=== PATIENT | female | born 1975 | race Caucasian/White ===

== ENCOUNTER → 2020-08-06 09:55 | Outpatient (CLI) | payer OTHER, SELFPAY ==
--- NOTE | 2020-08-06 09:56 | MR_ITS ---
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 COMPARISON: No exams were available for comparison TECHNIQUE: Routine multiplanar multi echo sequences are performed without and with gadolinium enhancement. FINDINGS: No midline shift, mass effect, intracranial hemorrhage, or hydrocephalus is evident. The cerebellopontine angles, cerebellum, and brainstem have an unremarkable appearance. No enhancing lesions are evident. There is no evidence of acute infarction. There is a tiny T2 white matter hyperintensity in right temporal parietal junction and 1 in the left frontal lobe which may be due to small ischemic gliotic foci or could be sequela from migraine headache. These do not enhance and do not demonstrate restricted diffusion. The hippocampal gyri have an unremarkable appearance. No evidence of hippocampal sclerosis. The temporal horns are symmetric. The pituitary, optic chiasm, corpus callosum, and craniocervical junction have an unremarkable appearance. No mastoid effusion or sinus air-fluid level.. IMPRESSION: No acute intracranial findings. There are 2 small T2 white matter hyperintensities 1 in the right parietal lobe and 1 in the left frontal lobe. These are nonspecific and could be due to small ischemic gliotic foci or could be sequela secondary to migraine headache. Dictated by: Trevor Barajas MD 08/07/2020 09:44 Trevor Barajas MD in [place] 08/07/2020 09:44
== END ==
PROVIDERS: PCP Emergency Medicine; Visit Provider Specialist
DX: G40.909 Epilepsy, unspecified, not intractable, without status epilepticus (principal); G43.709 Chronic migraine without aura, not intractable, without status migrainosus; G93.49 Other encephalopathy; Q04.8 Other specified congenital malformations of brain
CPT/HCPCS: 70553; A9576

== ENCOUNTER 2021-09-12 11:39 | Emergency (ER) | payer BC, OTHER, SELFPAY ==
[2021-09-12 11:39] VITALS: BP 149/96; PULSE 99; RESP 18; TEMP 36.8; O2SAT 95; BMI 17.2
[2021-09-12 12:00] VITALS: BP 132/91; PULSE 97; RESP 16; O2SAT 94
--- NOTE | 2021-09-12 12:00 | CT_ITS ---
PROCEDURE INFORMATION: Exam: CT Head Without Contrast Exam date and time: 09/12/2021 12:00 PM Age: 45 years old Clinical indication: Other: Seizure TECHNIQUE: Imaging protocol: Computed tomography of the head without contrast. Radiation optimization: All CT scans at this facility use at least one of these dose optimization techniques: automated exposure control; mA and/or kV adjustment per patient size (includes targeted exams where dose is matched to clinical indication); or iterative reconstruction. COMPARISON: MR HEAD/BRAIN WO/W CON 08/06/2020 10:11 AM FINDINGS: Brain: Normal. No hemorrhage. Unremarkable white matter. No mass effect. Cerebral ventricles: No ventriculomegaly. Paranasal sinuses: Visualized sinuses are unremarkable. No fluid levels. Mastoid air cells: Visualized mastoid air cells are well aerated. Bones/joints: Unremarkable. No acute fracture. Soft tissues: Unremarkable. IMPRESSION: No acute intracranial abnormality.
--- NOTE | 2021-09-12 12:07 | HMH.EDGENADL ---
ED Disposition Clinical Impression: Seizure disorder, Hx of migraines Disposition: Home, Self-Care Condition on Discharge: Good Instructions: DI for Seizure Disorder -- Adult Additional Instructions: Take Briviact and amitriptyline as prescribed. Call Dr. Marie to make follow-up appointment. Call your primary care provider to make follow-up appointment. Additional instructions for SEIZURE OR LOSS OF CONSCIOUSNESS/POSSIBLE SEIZURE: NO DRIVING, BIKE RIDING, SWIMMING, TUB BATHING, LADDERS UNTIL CLEARED BY DOCTOR. RETURN IF SEIZURE RECURS. NO ALCOHOL OR STREET DRUGS. See your physician as soon as possible for follow-up. Return to the emergency department if seizure recurs. Prescriptions: Amitriptyline HCl 100 mg PO HS #30 tab Transmission Status: Pending to [facility] Brivaracetam [Briviact] 100 mg PO BID #60 tab Transmission Status: [id number] Referrals: Gerardo Madsen MD [Primary Care Provider] - - Critical Care Critical Care Time: No Attestation: On 09/12/21, the high probability of a clinically significant, sudden or life threatening deterioration of the following system(s) required my full and direct attention, intervention and personal management. The time I documented below is in addition to time spent performing reported procedures but includes the following listed in this critical care notation. Medical Decision Making - Medical Records Medical records reviewed: Yes: I reviewed the patient's medical records. MR Comment: Reviewed most recent neurology visit note, Dr. Marie, 11/02/2020. Reviewed most recent MRI brain report 08/07/2020. - Juan Manuel Inquiry Pt receiving controlled substance: Yes Juan Manuel was queried for this patient: Yes (Last Briviact prescription filled 05/11/2021) Risks and benefits of using a controlled substance: were not discussed with pt by me Vital Signs: 09/12/21 11:39 09/12/21 13:19 Temperature 98.3 F Temperature Source Oral Pulse Rate 88 Pulse Rate [Right Radial] 99 H Respiratory Rate 18 14 Blood Pressure 138/81 Blood Pressure [Right Arm] 149/96 H Blood Pressure Mean 106 Blood Pressure Mean [Right Arm] 113 Blood Pressure Source [Right Arm] Automatic Cuff Blood Pressure Position [Right Arm] Sitting 02 Sat by Pulse Oximetry 95 96 Oxygen Delivery Method Room Air - Lab Data Lab Results 09/12/21 12:04: WBC 8.8, RBC 4.15 L, Hgb 13.1, Hct 39.5, MCV 95.3, MCH 31.5 H, MCHC 33.1, RDW 12.7, Plt Count 478 H, MPV 7.5, Neut % (Auto) 87.5 H, Lymph % (Auto) 9.3 L, [place] % (Auto) 2.2, Eos % (Auto) 0.4, Baso % (Auto) 0.6, Neut # (Auto) 7.7, Lymph # (Auto) 0.8, [place] # (Auto) 0.2, Eos # (Auto) 0.0, Baso # (Auto) 0.1, Total Counted 100, Neutrophils % (Manual) 85 H, Lymphocytes % (Manual) 10, Monocytes % (Manual) 5, Platelet Estimate Slight increase, RBC Morphology Normal 09/12/21 12:04: Sodium 144, Potassium 4.0, Chloride 108 H, Carbon Dioxide 26, Anion Gap 14.0, BUN 11, Creatinine 0.70, Estimated Creat Clear 80, Estimated GFR 90, Est GFR ( Amer) 109, Glucose 107 H, Calcium 9.8, Total Bilirubin < 0.1 L, AST 29, ALT 18, Alkaline Phosphatase 83, Total Protein 7.0, Albumin 4.4, Globulin 2.6, Albumin/Globulin Ratio 1.7 09/12/21 12:59: Urine Color Yellow, Urine Appearance Clear, Urine pH 6.0, Ur Specific [place] 1.010, Urine Protein Negative, Urine Glucose (UA) Negative, Urine Ketones Negative, Urine Blood Negative, Urine Nitrate Negative, Urine Bilirubin Negative, Urine Urobilinogen 0.2, Ur Leukocyte Esterase Negative, Urine RBC None, Urine WBC 3-5, Ur Squamous Epith Cells 3-5, Urine Bacteria None 09/12/21 12:59: Urine Opiates Screen Negative, Urine Methadone Screen Negative, Ur Barbituates Screen Negative, Ur Phencyclidine Scrn Negative, Ur Amphetamines Screen Negative, U Benzodiazepines Scrn Positive H, Urine Cocaine Screen Negative, U Marijuana (THC) Screen Positive H Result diagrams: 09/12/21 12:04 09/12/21 12:04 Orders (Tests/Meds): ED MEDICATIO
[2021-09-12 12:12] LABS: Basophils # 0.1 K/mm3 (0-0.2); Basophils % 0.6 % (0.1-2.0); Eosinophils % 0.4 % (0.1-12.0); Hematocrit 39.5 % (37.0-47.0); Hemoglobin 13.1 g/dL (12.2-16.2); Lymphocytes # 0.8 K/mm3 (0.7-4.5); Lymphocytes % 9.3 % (10-50); Mean Corpuscular HGB Conc 33.1 g/dL (31.8-35.4); Mean Corpuscular Hemoglobin 31.5 pg (27.0-31.2); Mean Corpuscular Volume 95.3 fl (81-99); Mean Platelet Volume 7.5 fl (7.4-10.4); Monocytes # 0.2 K/mm3 (0.1-1.0); Monocytes % 2.2 % (1.7-9.3); Neutrophils # 7.7 K/mm3 (1.8-7.8); Neutrophils % 87.5 % (37.0-80.0); Platelet Count 478 K/mm3 (142-424); Red Blood Count 4.15 M/mm3 (4.20-5.40); Red Cell Distribution Width 12.7 % (11.5-17.5); White Blood Count 8.8 K/mm3 (4.8-10.8)
[2021-09-12 12:16] LABS: MANUAL DIFFERENTIAL MANUAL DIFFERENTIAL (MANUAL DIFF)
[2021-09-12 12:17] LABS: Chloride 108 mmol/L (98-107); Sodium 144 mmol/L (136-145)
[2021-09-12 12:20] LABS: Alanine Aminotransferase 18 U/L (12-78); Albumin Level 4.4 g/dl (3.5-5.0); Albumin/Globulin Ratio 1.7 (1.1-1.8); Alkaline Phosphatase 83 U/L (38-126); Aspartate Amino Transferase 29 U/L (14-36); Blood Urea Nitrogen 11 mg/dl (7-17); Calcium 9.8 mg/dl (8.4-10.2); Carbon Dioxide 26 mmol/L (22.0-30.0); Creatinine Clearance Estimated 80 mL/min (50-200); Estimated Glomerular Filt Rate 90 ml/min (>60); GFR (African American) 109 ML/MIN (>60); Globulin 2.6 g/dL (1.3-3.2); Glucose 107 mg/dl (74-100)
[2021-09-12 12:26] LABS: Bilirubin,Total < 0.1 mg/dl (0.2-1.3)
[2021-09-12 12:30] VITALS: BP 138/93; PULSE 94; RESP 16; O2SAT 95
--- NOTE | 2021-09-12 12:56 | PC.NURSE ---
Pt ambulating to bathroom at this time with staff assistance
[2021-09-12 13:04] LABS: Microscopic, Urine URINE MICROSCOPIC (MICROSCOPIC)
[2021-09-12 13:10] LABS: Appearance,Urine CLEAR (Clear); Bilirubin,Urine Negative (Negative); Blood, Urine Negative (Negative); Color,Urine YELLOW (Yellow); Glucose,Urine (UA) Negative (Negative); Ketones,Urine Negative (Negative); Leukocyte Esterase,Urine Negative (Negative); Nitrate,Urine Negative (Negative); Protein,Urine Negative (Negative); Urobilinogen,Urine 0.2 EU/dl (0.2)
[2021-09-12 13:19] VITALS: BP 138/81; PULSE 88; RESP 14; O2SAT 96
[2021-09-12 13:19] LABS: Lymphocytes % 10 % (10-50); Monocytes % 5 % (2-9); Neutrophils % 85 % (42-76); Platelet Estimate Slight Increase; RBC Morphology Normal; Total Cells Counted 100
[2021-09-12 13:28] LABS: Barbiturates Screen,Urine Negative ng/ml (<200); Benzodiazepines Screen,Urine Positive ng/ml (<200)
[2021-09-12 13:29] LABS: Amphetamine/Metha Screen,Urine Negative ng/ml (<1000)
[2021-09-12 13:30] LABS: Cannabinoid Screen,Urine Positive ng/ml (<50); Cocaine Screen,Urine Negative ng/ml (<300)
[2021-09-12 13:31] LABS: Methadone Screen,Urine Negative ng/ml (<300)
[2021-09-12 13:32] LABS: Opiate Screen,Urine Negative ng/ml (<300); Phencyclidine Screen,Urine Negative ng/ml (<25)
[2021-09-12 13:48] VITALS: BP 132/79; PULSE 89; RESP 16; TEMP 36.9; O2SAT 95
== END 2021-09-12 13:50 | disposition home or self-care (01) ==
PROVIDERS: Emergency Provider Emergency Medicine; PCP Family Medicine
DX: G40.909 Epilepsy, unspecified, not intractable, without status epilepticus (principal); G43.909 Migraine, unspecified, not intractable, without status migrainosus; F12.10 Cannabis abuse, uncomplicated; F17.210 Nicotine dependence, cigarettes, uncomplicated; Z88.5 Allergy status to narcotic agent
CPT/HCPCS: 70450; 80053; 80305; 81001; 85007; 85025; 96374; 99283

== ENCOUNTER 2022-04-13 16:54 | Emergency (ER) | payer BC, SELFPAY ==
[2022-04-13 16:54] VITALS: BP 138/77; PULSE 100; RESP 18; TEMP 37.6; O2SAT 95; BMI 19.3
[2022-04-13 17:02] VITALS: BP 120/81; PULSE 92; O2SAT 96
--- NOTE | 2022-04-13 17:04 | PC.NURSE ---
HUSEYIN KELLEY at for jo.
--- NOTE | 2022-04-13 17:10 | XR_ITS ---
PROCEDURE INFORMATION: Exam: XR Right Foot Exam date and time: 04/13/2022 5:29 PM Age: 46 years old Clinical indication: Pain; Foot; Right TECHNIQUE: Imaging protocol: Radiologic exam of the Right foot. Views: 3 or more views. COMPARISON: No relevant prior studies available. FINDINGS: Bones/joints: Hallux valgus (1st metatarsophalangeal angle is 29 degrees). There is no evidence of acutely displaced skeletal fractures. There is no evidence of joint dislocation. No aggressive osseous lesions. Soft tissues: There is no significant soft tissue swelling. IMPRESSION: 1. No acute skeletal pathology. 2. Hallux valgus.
--- NOTE | 2022-04-13 17:19 | HMH.EDEXTP ---
ED Disposition Clinical Impression: Right foot sprain Qualifiers: Encounter type: initial encounter Qualified Code(s): S93.601A - Unspecified sprain of right foot, initial encounter Disposition: Home, Self-Care Condition on Discharge: Good Instructions: DI for Foot Sprain Referrals: Provider,Ward, [Primary Care Provider] - Xavier Pavon MD [Staff Physician] - - Critical Care Critical Care Time: No Attestation: On 04/13/22, the high probability of a clinically significant, sudden or life threatening deterioration of the following system(s) required my full and direct attention, intervention and personal management. The time I documented below is in addition to time spent performing reported procedures but includes the following listed in this critical care notation. Medical Decision Making - Medical Records Medical records reviewed: Yes: I reviewed the patient's medical records. - Juan Manuel Inquiry Pt receiving controlled substance: No Vital Signs: 04/13/22 16:54 04/13/22 17:02 04/13/22 17:30 Temperature 99.6 F Temperature Source Oral Pulse Rate 92 H 86 Pulse Rate [Left Radial] 100 H Respiratory Rate 18 Blood Pressure 120/81 122/80 Blood Pressure [Right Arm] 138/77 Blood Pressure Mean 86 Blood Pressure Mean [Right Arm] 97 Blood Pressure Source [Right Arm] Automatic Cuff Blood Pressure Position [Right Arm] Sitting 02 Sat by Pulse Oximetry 95 96 95 Oxygen Delivery Method Room Air 04/13/22 18:00 04/13/22 18:30 Temperature Temperature Source Pulse Rate 90 87 Pulse Rate [Left Radial] Respiratory Rate Blood Pressure 115/74 124/75 Blood Pressure [Right Arm] Blood Pressure Mean 83 83 Blood Pressure Mean [Right Arm] Blood Pressure Source [Right Arm] Blood Pressure Position [Right Arm] 02 Sat by Pulse Oximetry 96 95 Oxygen Delivery Method Orders (Tests/Meds): ED MEDICATIONS Discontinued Medications Generic Name Dose Route Start Last Admin Trade Name Freq PRN Reason Stop Dose Admin Acetaminophen 500 mg 04/13/22 17:10 04/13/22 17:15 Acetaminophen 500mg Tab PO 04/13/22 17:11 500 mg ONCE ONE Administration ORDERS Category Date Time Status UDS [Drug Screen,Urine] Stat Lab 04/13/22 18:46 Ordered - Radiology Data #1 Image(s): Foot/Toes Image Reviewed: Yes I reviewed the patient's radiology results, Yes I reviewed the patient's radiology image, Yes I have reviewed radiologist's interpretation IMPRESSION: 1. No acute skeletal pathology. 2. Hallux valgus. - Reevaluation(s) Time: 19:03 Reevaluation #1: On reevaluation, patient is feeling better. She is much more alert at this time. Apparently she states that she was walking to the yard and stepped in a hole twisted her foot. The son is at bedside and we did have a call with the . They are requesting urine drug screen. I did offer this to the patient, however she is declining at this time. She does not want to provide urine sample. She is alert and appropriate. Is full decision-making capabilities. I did offer her further treatment with blood work, however the patient is declining at this time. She wishes to be discharged. I did instruct the patient to return the emergency department for further management or follow-up with her PCP in 48 hours. Given strict return precautions. Verbalized understanding. Medical Decision Narrative: 46-year-old female presenting with some right foot pain. No obvious injury. Consistent with sprain. Imaging obtained. Extremity Problem HPI - General Chief complaint: Extremity Problem,Nontraumatic Stated complaint: RT foot pain Time Seen by Provider: 04/13/22 17:20 Mode of Arrival: Wheelchair Limitations: No Limitations Description of Symptoms (Recalled from ER Triage Doc. by RN): c/o right foot pain that started this morning, denies any known injury - History of Present Illness HPI Narrative: 46-year-old
[2022-04-13 17:30] VITALS: BP 122/80; PULSE 86; O2SAT 95
[2022-04-13 18:00] VITALS: BP 115/74; PULSE 90; O2SAT 96
--- NOTE | 2022-04-13 18:26 | PC.NURSE ---
FAMILY REQUESTING UPDATE, NOTIFIED
[2022-04-13 18:30] VITALS: BP 124/75; PULSE 87; O2SAT 95
--- NOTE | 2022-04-13 18:42 | PC.NURSE ---
HUSEYIN KELLEY at speaking with patient and son.
[2022-04-13 19:26] VITALS: BP 138/83; PULSE 87; RESP 20; TEMP 37.6; O2SAT 95
== END 2022-04-13 19:27 | disposition home or self-care (01) ==
PROVIDERS: Emergency Provider Emergency Medicine
DX: S93.601A Unspecified sprain of right foot, initial encounter (principal); Z79.899 Other long term (current) drug therapy; Z88.5 Allergy status to narcotic agent; Z87.19 Personal history of other diseases of the digestive system; G43.909 Migraine, unspecified, not intractable, without status migrainosus; R56.9 Unspecified convulsions
CPT/HCPCS: 73630; 99283

== ENCOUNTER → 2022-05-31 08:33 | Outpatient (CLI) | payer BC, SELFPAY ==
[2022-05-31 18:15] LABS: Basophils # 0.1 K/mm3 (0-0.2); Basophils % 1.3 % (0.1-2.0); Eosinophils # 0.3 K/mm3 (0.0-0.4); Eosinophils % 4.4 % (0.1-12.0); Hematocrit 43.4 % (37.0-47.0); Hemoglobin 13.4 g/dL (12.2-16.2); Lymphocytes # 1.9 K/mm3 (0.7-4.5); Lymphocytes % 25.4 % (10-50); Mean Corpuscular HGB Conc 30.9 g/dL (31.8-35.4); Mean Corpuscular Hemoglobin 29.5 pg (27.0-31.2); Mean Corpuscular Volume 95.5 fl (81-99); Mean Platelet Volume 8.5 fl (7.4-10.4); Monocytes # 0.4 K/mm3 (0.1-1.0); Monocytes % 5.1 % (1.7-9.3); Neutrophils # 4.8 K/mm3 (1.8-7.8); Neutrophils % 63.7 % (37.0-80.0); Platelet Count 593 K/mm3 (142-424); Red Blood Count 4.55 M/mm3 (4.20-5.40); Red Cell Distribution Width 13.2 % (11.5-17.5); White Blood Count 7.6 K/mm3 (4.8-10.8)
[2022-05-31 18:27] LABS: Alanine Aminotransferase 14 U/L (12-78); Albumin/Globulin Ratio 1.3 (1.1-1.8); Alkaline Phosphatase 158 U/L (38-126); Anion Gap 11.8 mEq/L (5-15); Aspartate Amino Transferase 34 U/L (14-36); Blood Urea Nitrogen 12 mg/dl (7-17); Calcium 9.7 mg/dl (8.4-10.2); Carbon Dioxide 28 mmol/L (22.0-30.0); Chloride 105 mmol/L (98-107); Chol/HDL Ratio 5.2 (1-3.5); Cholesterol 191 mg/dl (140-200); Estimated Glomerular Filt Rate 90 ml/min (>60); GFR (African American) 109 ML/MIN (>60); Glucose 91 mg/dl (74-100); HDL Cholesterol 37 mg/dl (40-60); Potassium 4.8 mmoL/L (3.5-5.1); Sodium 140 mmol/L (136-145); Triglycerides 278 mg/dl (30-150); VLDL Cholesterol 56 mg/dL (0-40)
[2022-05-31 18:37] LABS: Bilirubin,Total < 0.1 mg/dl (0.2-1.3)
[2022-05-31 18:57] LABS: Thyroid Stimulating Hormone 1.09 uIU/mL (0.465-4.68)
[2022-06-02 08:28] LABS: Direct LDL Cholesterol 90 mg/dL (100-129)
== END ==
PROVIDERS: PCP Physician Assistant; Visit Provider Physician Assistant
DX: G40.909 Epilepsy, unspecified, not intractable, without status epilepticus (principal); Z79.899 Other long term (current) drug therapy; F17.210 Nicotine dependence, cigarettes, uncomplicated
CPT/HCPCS: 80053; 80061; 82306; 84443; 85025

== ENCOUNTER → 2022-06-03 08:29 | Outpatient (CLI) | payer BC, SELFPAY ==
[2022-06-03 10:18] LABS: Alkaline Phosphatase 140 U/L (38-126); Gamma Glutamyl Transpeptidase 25 U/L (12-43); Phosphorous 3.9 mg/dl (2.5-4.5)
[2022-06-03 10:29] LABS: Intact Parathyroid Hormone 35.4 pg/mL (7.5-53.5)
[2022-06-05 08:36] LABS: Peripheral Smear Review Scanned Result
[2022-06-12 21:42] LABS: Hepatitis C Antibody <0.1
[2022-06-12 21:43] LABS: Hep A Ab, IgM Negative; Hepatitis B Core Antibody IgM Negative; Hepatitis B Surface Antigen Negative
== END ==
PROVIDERS: PCP Family Medicine; Visit Provider Physician Assistant
DX: R74.8 Abnormal levels of other serum enzymes (principal)
CPT/HCPCS: 36415; 80074; 82977; 83970; 84075; 84100

== ENCOUNTER → 2022-06-07 09:09 | Outpatient (CLI) | payer BC, SELFPAY ==
--- NOTE | 2022-06-07 09:12 | US_ITS ---
FINAL REPORT CLINICAL HISTORY: Elevated liver function FINDINGS: Sonographic images of the right upper quadrant were obtained. The pancreas is partially obscured.The liver has an unremarkable appearance.The gallbladder is surgically absent.There is no evidence of biliary ductal dilatation.The common duct measures 3 mm. Limited images of the right kidney are unremarkable. IMPRESSION: Absent gallbladder otherwise unremarkable right upper quadrant ultrasound. Reviewed, Interpreted and Dictated by Marcelo Conroy III, MD Transcribed by Husam Barros Authenticated and [facility]
== END ==
LOC: RAD 09:10
PROVIDERS: PCP Family Medicine; Visit Provider Physician Assistant
DX: R79.89 Other specified abnormal findings of blood chemistry (principal)
CPT/HCPCS: 76705

== ENCOUNTER → 2022-09-13 12:17 | Outpatient (CLI) | payer OTHER, SELFPAY ==
--- NOTE | 2022-09-13 12:31 | XR_ITS ---
FINAL REPORT CLINICAL HISTORY: sever lower back pain FINDINGS: LUMBAR SPINE Three views were obtained. There is no acute fracture. There is no malalignment. There is mild leftward curvature. There are mild degenerative changes with small osteophytes. There are mild vascular calcifications. IMPRESSION: Mild degenerative change with no acute bony abnormality. Reviewed, Interpreted and Dictated by Marcelo Conroy III, MD Transcribed by Katie Santos Authenticated and [facility]
[2022-09-13 13:02] LABS: Basophils % 0.3 % (0.1-2.0); Eosinophils # 0.1 K/mm3 (0.0-0.4); Eosinophils % 0.4 % (0.1-12.0); Hematocrit 43.2 % (37.0-47.0); Hemoglobin 14.1 g/dL (12.2-16.2); Lymphocytes # 1.2 K/mm3 (0.7-4.5); Lymphocytes % 9.6 % (10-50); Mean Corpuscular HGB Conc 32.6 g/dL (31.8-35.4); Mean Corpuscular Hemoglobin 30.4 pg (27.0-31.2); Mean Corpuscular Volume 93.3 fl (81-99); Mean Platelet Volume 7.8 fl (7.4-10.4); Monocytes # 0.4 K/mm3 (0.1-1.0); Monocytes % 2.9 % (1.7-9.3); Neutrophils # 10.3 K/mm3 (1.8-7.8); Neutrophils % 86.7 % (37.0-80.0); Platelet Count 519 K/mm3 (142-424); Red Blood Count 4.63 M/mm3 (4.20-5.40); Red Cell Distribution Width 14.1 % (11.5-17.5); White Blood Count 11.9 K/mm3 (4.8-10.8)
[2022-09-13 13:04] LABS: MANUAL DIFFERENTIAL MANUAL DIFFERENTIAL (MANUAL DIFF)
[2022-09-13 13:20] LABS: Alanine Aminotransferase 32 U/L (12-78); Albumin Level 4.7 g/dl (3.5-5.0); Albumin/Globulin Ratio 1.8 (1.1-1.8); Alkaline Phosphatase 158 U/L (38-126); Aspartate Amino Transferase 26 U/L (14-36); Bilirubin,Total 0.2 mg/dl (0.2-1.3); Blood Urea Nitrogen 27 mg/dl (7-17); Calcium 10.3 mg/dl (8.4-10.2); Carbon Dioxide 29 mmol/L (22.0-30.0); Chloride 105 mmol/L (98-107); Estimated Glomerular Filt Rate 77 ml/min (>60); GFR (African American) 93 ML/MIN (>60); Globulin 2.6 g/dL (1.3-3.2); Glucose 142 mg/dl (74-100); Sodium 142 mmol/L (136-145); Total Protein,Serum 7.3 g/dl (6.3-8.2)
[2022-09-13 13:22] LABS: Lymphocytes % 8 % (10-50); Monocytes % 1 % (2-9); Neutrophils % 91 % (42-76); Platelet Estimate Slight Increase; RBC Morphology Normal; Total Cells Counted 100
== END ==
LOC: LAB 12:18
PROVIDERS: PCP Family Medicine; Visit Provider Specialist
DX: G40.909 Epilepsy, unspecified, not intractable, without status epilepticus (principal); D75.839 Thrombocytosis, unspecified; M54.50 Low back pain, unspecified; M79.605 Pain in left leg
CPT/HCPCS: 36415; 72100; 80053; 85007; 85025

== ENCOUNTER → 2022-09-20 11:01 | Outpatient (CLI) | payer OTHER, SELFPAY ==
--- NOTE | 2022-09-20 11:01 | MR_ITS ---
FINAL REPORT CLINICAL HISTORY: severe lower back pain with left leg pain FINDINGS: MRI LUMBAR SPINE W/O CONTRAST Multiplanar MR imaging of the lumbar spine was performed without contrast. There is motion on some of the images which decreases sensitivity of the exam. On the sagittal T2-weighted images, disc degeneration is seen at L4-5 and L5-S1. The vertebral alignment is normal. There is no evidence of fracture. The conus has an unremarkable appearance. T12-L1: No significant central canal stenosis or neural foraminal narrowing. L1-2: There is a small right paracentral disc protrusion which indents the thecal sac. L2-3: No significant central canal stenosis or neural foraminal narrowing. L3-4: An annular disc bulge is present with mild left neural foraminal narrowing. L4-5: An annular disc bulge is present. There is a left paracentral disc protrusion with left L5 nerve root compromise. There is mild right and moderate left neural foraminal narrowing. There is mild central canal stenosis with an AP diameter of the thecal sac of 8 mm. L5-S1: An annular disc bulge is present with moderate bilateral neural foraminal narrowing. There is a central and left paracentral disc protrusion with left S1 nerve root compromise. There is mild central canal stenosis with an AP diameter of the thecal sac of 8 mm. There is spurring of the left SI joint. IMPRESSION: Disc degeneration and spondylosis at L4-5 and L5-S1 as above with central canal stenosis. Reviewed, Interpreted and Dictated by Marcelo Conroy III, MD Transcribed by Katie Santos Authenticated and [facility]
== END ==
LOC: RAD 11:01
PROVIDERS: PCP Family Medicine; Visit Provider Specialist
DX: M54.50 Low back pain, unspecified (principal); M54.17 Radiculopathy, lumbosacral region
CPT/HCPCS: 72148; 76376

== ENCOUNTER → 2022-10-26 10:57 | Outpatient (POV) | payer OTHER, SELFPAY ==
[2022-10-26 11:13] VITALS: BP 132/78; PULSE 111; RESP 18; O2SAT 97; BMI 21.9
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
== END ==
LOC: SC.PAIN 10:58
PROVIDERS: PCP Family Medicine; Visit Provider Nurse Practitioner Family
DX: M51.16 Intervertebral disc disorders with radiculopathy, lumbar region (principal); M54.17 Radiculopathy, lumbosacral region; M79.605 Pain in left leg; M25.552 Pain in left hip; M48.061 Spinal stenosis, lumbar region without neurogenic claudication; M46.1 Sacroiliitis, not elsewhere classified; G54.9 Nerve root and plexus disorder, unspecified; M70.62 Trochanteric bursitis, left hip; M47.26 Other spondylosis with radiculopathy, lumbar region
CPT/HCPCS: 99202; G0463

== ENCOUNTER 2022-12-02 10:47 | Emergency (ER) | payer OTHER, SELFPAY ==
[2022-12-02] VITALS (8 sets, daily range): BP systolic 134–159; BP diastolic 88–101; PULSE 74–93; RESP 14–18; TEMP 36.6–37.2; O2SAT 96–99; BMI 23.5
--- NOTE | 2022-12-02 10:56 | PC.NURSE ---
C-Collar applied upon arrival to ED with initiation of spinal precautions. +PMS. Abrasion noted to right periorbital without vision changes. Slight bruising noted to RLE with c/o lumbar pain.
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
--- NOTE | 2022-12-02 11:41 | PC.NURSE ---
Pt. going to CT
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
== END 2022-12-02 13:54 | disposition home or self-care (01) ==
PROVIDERS: Emergency Provider Student in an Organized Health Care Education/Training Program; PCP Family Medicine
DX: S39.012A Strain of muscle, fascia and tendon of lower back, initial encounter; S29.012A Strain of muscle and tendon of back wall of thorax, initial encounter; J44.1 Chronic obstructive pulmonary disease with (acute) exacerbation; J45.901 Unspecified asthma with (acute) exacerbation; F17.210 Nicotine dependence, cigarettes, uncomplicated; F32.A Depression, unspecified; Z90.49 Acquired absence of other specified parts of digestive tract; Z90.710 Acquired absence of both cervix and uterus; Z81.8 Family history of other mental and behavioral disorders; Z80.9 Family history of malignant neoplasm, unspecified; Z82.49 Family history of ischemic heart disease and other diseases of the circulatory system; V47.5XXA Car driver injured in collision with fixed or stationary object in traffic accident, initial encounter
CPT/HCPCS: 72125; 72128; 72131; 73562; 96374; 99285